=== PATIENT | male | born 2005 ===

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

== ENCOUNTER 2025-05-06 02:09 | Emergency (ER) | payer OTHER, SELFPAY ==
[2025-05-06 02:28] VITALS: BP 164/94
[2025-05-06 04:26] LABS: Hematocrit 40.7 % (39.0-52.0); Hemoglobin 14.6 g/dL (13.0-18.0); Mean Corp Hgb Conc. 35.9 g/dL (33.0-37.0); Mean Corpuscular Volume 84.8 fL (80.0-94.0); Nucleated Red Blood Cells % 0 % (-); Platelet Count 310 10^3/uL (130-400); Red Cell Dist. Width 13.0 % (11.5-14.5)
[2025-05-06 04:57] LABS: ALT (SGPT) 22 U/L (0-50); AST (SGOT) 26 U/L (17-59); Albumin 5.2 g/dl (3.5-5.0); Alkaline Phosphatase 81 U/L (38-126); Blood Urea Nitrogen 5 mg/dl (9-20); Calcium 10.2 mg/dl (8.4-10.2); Carbon Dioxide 20 mmol/L (22-30); Chloride 102 mmol/L (98-107); Glucose 118 mg/dl (70-99); Potassium 3.6 mmol/L (3.5-5.1); Sodium 138 mmol/L (135-145); Total Protein 8.4 g/dl (6.3-8.2); eGFR > 60.00
--- NOTE | 2025-05-06 05:06 | ED.GENMED ---
History of Present Illness
General
Chief Complaint: Crisis Evaluation
Source: patient and family
Exam Limitations: none
Time Seen by Provider: 05/06/25 03:49
Nursing documentation reviewed up to this point in time: agreed with
History of Present Illness
History of Present Illness:
Note:
CHIEF COMPLAINT(S)
Vomiting for the past week and a half, anxiety, and depression.
HISTORY OF PRESENT ILLNESS
The patient is a 20-year-old male who presents with concerns about electrolyte deficiencies and potential 'refeeding syndrome' due to frequent vomiting over the last week and a half. He reports feeling anxious about his health, specifically
mentioning worries about low levels of magnesium and zinc, which he associates with refeeding issues he has read about online. He acknowledges vomiting and describes it as a result of anxiety and depression, which has recently intensified. The
patient has a history of mental health issues and states that he has dropped out of college due to these challenges. He expresses feeling lost and lacking support, especially after returning home from school to be closer to his primary friend group.
Despite these feelings, the patient denies suicidal or homicidal ideation and does not wish to be admitted inpatient but is open to exploring intensive outpatient therapy options.
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 He mentions frequent sweaty hands and new blister formation attributed to the working conditions and heat exposure.
PAST MEDICAL AND SURGICAL HISTORY
The patient mentions previous inpatient treatment for mental health issues but does not provide details on specific diagnoses or interventions.
SOCIAL DETERMINANTS AFFECTING HEALTH
The patient recently dropped out of college where he was majoring in education with a focus on physics. This academic interruption appears to be a significant stressor linked to his current exacerbation of anxiety and depression. His work as a cook
is in a supportive environment, but he lacks a broader support network, contributing to his mental health challenges.
PHYSICAL EXAM
General: Alert, no acute distress.
Skin: Warm, dry. Reports blisters due to frequent hand use and exposure to heat.
Head: Normocephalic, atraumatic.
Neck: Supple, trachea midline.
Eye Ears, Nose, Mouth and Throat: Oral mucosa moist.
Cardiovascular: Normal peripheral perfusion, No edema.
Respiratory: Respirations are non-labored.
Gastrointestinal: Abdomen nondistended.
Back: Normal range of motion, Normal alignment.
Musculoskeletal: Normal range of motion, normal strength.
Neurological: Alert and oriented to person, place, time, and situation, No focal neurological deficit observed.
Psychiatric: Cooperative, appropriate mood & affect.
PLAN
1. Obtain laboratory tests to assess electrolyte levels, specifically magnesium and zinc, and overall blood chemistry.
2. Provide the patient with a one-time dose of medication to help manage acute anxiety and improve sleep quality tonight.
3. Recommend the patient consider an intensive outpatient program for mental health support and management.
4. Advise on the use of hand creams for blister management and to avoid excessive exposure to hot surfaces.
DIFFERENTIAL DIAGNOSIS
The Differential Diagnosis includes, in no particular order and is not limited to:
1. Anxiety Disorder
2. Depression
3. Gastroesophageal Reflux Disease
4. Nutritional Deficiency
5. Electrolyte Imbalance
6. Eating Disorder
7. Viral Gastroenteritis
8. Stress-induced Gastritis
9. Psychosomatic Disorder
10. Contact Dermatitis (related to hand blisters)
Disposition:
SUMMARY OF ENCOUNTER
A 20-year-old male presented with anxiety and concerns about potential mineral imbalances after recently dropping out of college. 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 He reported anxiety about his health but denied any suicidal or homicidal ideation. He was
accompanied by a friend. The patient received counseling from [facility] and was provided with resources for outpatient follow-up for intensive day treatment.
DISPOSITION
Discharge
ASSESSMENT
The patients anxiety appears to be exacerbated by recent life changes and work stress. He also shows concerns about potential mineral deficiencies.
PLAN
The patient received resources for outpatient follow-up, specifically for intensive day treatment to address his anxiety.
PATIENT EDUCATION AND COUNSELING
The patient was advised to protect his hands against hot objects due to reported scalding incidents from work. He also received counseling from [facility].
FOLLOW-UP INSTRUCTIONS
The patient was advised to follow up as an outpatient for intensive day treatment.
MEDICATION RECONCILIATION
No medications administered or prescribed during this visit.
MEDICAL DECISION MAKING
-Complexity of Data Reviewed: Chronic conditions affecting care included anxiety disorder and depression. Differential diagnosis includes anxiety disorder, depression, and potential nutritional deficiency.
-Data:
Category 2
Medical information was discussed with [facility], who provided resources for outpatient follow-up.
-Risk:
Care significantly affected by social determinants, including recent dropout from college and current work environment.
DIAGNOSIS
1. Generalized Anxiety Disorder - F41.1
2. Major Depressive Disorder, Single Episode, Unspecified - F32.9
Review of Systems
Review of Systems
All Other Systems: ROS reviewed and negative except as documented in HPI and ROS
Phy Exam
Physical Exam
Physical Exam:
.
Course
Orders/Labs/Results
Orders:
Orders
05/06/25 03:33
Crisis Consult Urgent
Reason for Consult: anxiety/depression
05/06/25 04:09
CMP [Comprehensive Metabolic Panel] Urgent
05/06/25 04:10
Complete Blood Count/With Diff Urgent
Abnormal Lab Results
05/06/25 05/06/25
04:09 04:10
WBC 11.1 H 10^3/uL
(4.8-10.8)
Absolute Neuts (auto) 8.4 H 10^3/uL
(1.4-6.5)
Absolute Monos (auto) 0.9 H 10^3/uL
(0.1-0.6)
Neutrophils % 75.8 H %
(42.2-75.2)
Lymphocytes % 14.9 L %
(20.5-51.1)
Carbon Dioxide 20 L mmol/L
(22-30)
BUN 5 L mg/dl
(9-20)
Creatinine 0.6 L mg/dL
(0.7-1.3)
Glucose 118 H mg/dl
(70-99)
Total Protein 8.4 H g/dl
(6.3-8.2)
Albumin 5.2 H g/dl
(3.5-5.0)
05/06/25 04:10
05/06/25 04:09
Vital Signs
Initial and Last Documented VS:
Initial Vital Signs
Temp Pulse BP Pulse Ox
98.7 F 97 164/94 96
05/06/25 02:28 05/06/25 02:28 05/06/25 02:28 05/06/25 02:28
Last Documented Vital Signs
Temp Pulse BP Pulse Ox
98.7 F 97 164/94 96
05/06/25 02:28 05/06/25 02:28 05/06/25 02:28 05/06/25 02:28
*Pulse Oximetry
SaO2: 96
Oxygen Mode of Delivery: Room air
Patient hypoxic: no
*Critical Care Note
Total Time (30-74mins, 75-104mins- exclusive of procedures): Not Applicable
ED Attending Note
-
Portions of this chart may have been created with voice recognition software.� Occasional wrong word or��sound alike� substitutions may have occurred due to the inherent limitations of voice recognition software.
Discharge Plan
Departure
Patient Disposition: Home (Routine Discharge)
Date of Disposition: 05/06/25
Time of Disposition: 05:09
Patient with high blood pressure during this ER visit?: Yes
Condition: Good
Discharge Problem:
Anxiety, Depression, Superficial burn
Instructions: Depression, Adult (DC), Anxiety, Adult (DC), Minor skin estrada - ED (DC), BLOOD PRESSURE
Referrals:
Igor Payne CRNP [Family Provider, Family Practice]
Interventions
Interventions:
*General Assessment Last Done: 05/06/25 02:31
*Neglect/Abuse Screening Last Done: 05/06/25 02:31
*ED COVID-19 Vaccine History Last Done: 05/06/25 02:31
*ED Influenza Vaccine History Last Done: 05/06/25 02:31
[facility] Fall Risk Assessment Tool Last Done: 05/06/25 03:59
*Risk Screen - Suicide (C-SSRS) Last Done: 05/06/25 03:59
ED-Psychological Assessment Last Done: 05/06/25 03:59
Discharge Date and Time
Print Language: SLOVENIAN
[2025-05-06] MEDS: ATIVAN 0.5 MG PO (05:33)
[2025-05-06] MEDS: ZOFRAN ODT (ORALLY DISINTEGRATING) 4 MG PO (05:45)
== END 2025-05-06 05:50 | disposition home or self-care (01) ==
LOC: EMR 02:09
PROVIDERS: EMERGENCY PHYSICIAN Student in an Organized Health Care Education/Training Program; FAMILY PHYSICIAN Nurse Practitioner Family
DX: F41.1 Generalized anxiety disorder (principal); F32.9 Major depressive disorder, single episode, unspecified; T23.109A Burn of first degree of unspecified hand, unspecified site, initial encounter; X08.8XXA Exposure to other specified smoke, fire and flames, initial encounter; Y93.G3 Activity, cooking and baking; Y92.89 Other specified places as the place of occurrence of the external cause; Y99.0 Civilian activity done for income or pay
CPT/HCPCS: 99283; 80053; 85025